=== PATIENT | male | born 1975 | race Caucasian/White ===

== ENCOUNTER 2022-04-20 20:04 | Emergency (ER) | payer MEDICAID ==
[~2022-04-20] VITALS: Ht 177.8 cm; Wt 60.0 kg
--- OUTSIDE RECORDS SUMMARY | 2022-04-20 21:05 | XMS ---
PreManage Notification: MICA IRBY Security Orthopaedic Physician Assistant Events No recent Security Events currently on file CRITERIA MET - PDMP CARE PROVIDERS [facility] PHONE: [phone] ZAY MONTERO Family [facility] Current PHONE: Unknown MARCUS GRAY I. Family Medicine 01/14/2022-Current PHONE: Unknown Care Guidelines exist for the following facilities: [facility] ( 02/05/2018 ) Tamia VISIT COUNT (12 MO.) [address] [place] [address] MELANI Bennett TOTAL 2 NOTE: Visits indicate total known visits. ED/UCC VISIT TRACKING (12 MO.) 04/20/2022 20:05 MELANI Walter [place] TYPE: Emergency COMPLAINT: - RT WRIST PAIN 06/15/2021 05:53 [facility] [place] TYPE: Emergency COMPLAINT: - eye pn DIAGNOSES: - eye pn INPATIENT VISIT TRACKING (12 MO.) No inpatient visits to display in this time frame [email or web address]
== END 2022-04-21 00:45 | disposition home or self-care (01) ==
LOC: ED 20:04
DX: G56.31 Lesion of radial nerve, right upper limb (principal)
CPT/HCPCS: 99283